=== PATIENT | female | born 1960 | race Caucasian/White ===

== ENCOUNTER 2018-09-10 05:58 | Day surgery (SDC) | payer MEDICARE, MEDICAID ==
[~2018-09-10] VITALS: Ht 157.5 cm; Wt 57.2 kg
[~2018-09-10 05:58] MED LIST: CATAPRES0.1 MG PO; HCTZ25 MG PO; HYDROCODON-ACE1 EAC7 PO; KLONOPIN0.5 MG PO; METOPROL TAR TAB 100 PO; PROTONIX40 MG PO; ZOFRAN4 MG PO
[2018-09-10 06:23] LABS: BASOPHILS 0.5 % (0-2); EOSINOPHILS 4.8 % (0-7); HEMATOCRIT 43.3 % (36.0-48.0); IMMATURE GRANULOCYTES 1.1 % (0-5); LYMPHOCYTES 25.8 % (15-50); MCH 34.2 pg (26.0-34.0); MCHC 34.6 g/dL (31.0-37.0); MCV 98.6 fL (80.0-100.0); MEAN PLATELET VOLUME 9.1 fL (7.4-10.4); MONOCYTES 8.5 % (2-11); NEUTROPHILS 59.3 % (40-80); PLATELET COUNT 275 10x3/uL (130-400); RBC 4.39 10x6/uL (4.00-5.40); RDW 13.7 % (11.5-14.5); WBC 6.1 10x3/uL (4.8-10.8)
[2018-09-10 06:33] LABS: ANION GAP 15.6 mmol/L (8-16); CALCIUM 9.3 mg/dL (8.5-10.1); POTASSIUM - SERUM 4.6 mmol/L (3.5-5.1)
[2018-09-10 07:38] VITALS: BP 146/87; Ht 157.5 cm; Wt 57.2 kg
[2018-09-10] MEDS ORDERED: HYDROCODON-ACE1 EA10 PO (08:43)
--- NOTE | 2018-09-10 10:42 | NUR ---
PATIENT CRYING STATING THAT HER PAIN LEVEL IS AT A 6, SHE IS GRIMICING. A ONE TIME ORDER WAS OBTAINED FOR A [employer] 10. MV
--- NOTE | 2018-10-08 09:41 | OP ---
PATIENT NAME: ARSENIO ESQUEDA MEDICAL RECORD: [id number] :60 LOCATION:[facility] ADMISSION DATE: SURGEON: EZ GALINDO MD DATE OF OPERATION: 09/10/2018 PREOPERATIVE DIAGNOSES: 1. Right inguinal hernia. 2. Tobacco dependence syndrome. 3. Hypertension. 4. Chronic obstructive pulmonary disease. POSTOPERATIVE DIAGNOSES: 1. Right inguinal hernia. 2. Tobacco dependence syndrome. 3. Hypertension. 4. Chronic obstructive pulmonary disease. PROCEDURE: Right inguinal hernia repair with medium PHS mesh. SURGEON: Ez Galindo MD REPORT OF PROCEDURE: The patient's right groin was prepped and draped in sterile fashion. An oblique incision was made above the inguinal ligament. Electrocautery was used to dissect through the subcutaneous tissues down to the external oblique fascia. This fascia was opened up to the external ring using electrocautery. There was a lot of scar tissue present from previous Pfannenstiel incision for hysterectomy. We got through the scar tissue and as we entered the inguinal canal, the patient continued to have a lot of scar tissue present, never could find the round ligament. The ilioinguinal nerve was found and high ligated. The inguinal floor was really just obliterated. The inguinal ligament was not visible, mainly it was just a large collection of fatty tissue present. The vessels were localized and I did not feel any evidence of a femoral hernia. The ilioinguinal nerve had been high ligated and there was no sign of any other nerve structures present in the wound. The pubic bone was found and the overlying fascia was cleared off. At this point, the hernia contents were pushed back into the abdominal cavity and a medium PHS mesh was inserted into the preperitoneal space of Retzius. We sutured down this mesh on any fascial tissue that we could find in all directions and eventually had good coverage of the tissues. The wound was then irrigated out thoroughly with normal saline. The external oblique fascia was then closed with running 2-0 Vicryl, Beto's was closed with interrupted 3-0 Vicryl and the skin was closed with running subcutaneous 5-0 Monocryl. A 10 mL of 0.25% Marcaine with epinephrine were infused into the surrounding tissues and the wound was dressed appropriately. COMPLICATIONS: None. CONDITION: Stable. ANESTHESIA: General endotracheal and local. BLOOD LOSS: Minimal. TRANSINT:[id number] Voice Confirmation ID: [id number] DOCUMENT ID: [id number] OPERATIVE REPORT [id number] ARSENIO ESQUEDA CHRISTIAN MD at 0941 CC: CANDACE BENNETT MD [id number] DICTATION DATE: 09/10/18 0925 HAT CLEANER: 09/10/18 1036 [facility] 09/10/18 [place] [id number] [place] [id number]
== END 2018-09-10 13:20 | disposition home or self-care (01) ==
LOC: D.OPS 05:58 → D.PAN 08:00 → D.OPS 13:20
PROVIDERS: Surgery
DX: K40.90 Unilateral inguinal hernia, without obstruction or gangrene, not specified as recurrent (principal); F17.200 Nicotine dependence, unspecified, uncomplicated; I10 Essential (primary) hypertension; J44.9 Chronic obstructive pulmonary disease, unspecified; Z01.812 Encounter for preprocedural laboratory examination

== ENCOUNTER → 2019-05-03 10:53 | Outpatient (CLI) | payer MEDICARE, MEDICAID ==
[2018-09-10 07:38] VITALS: BMI 23.1
[~2019-05-03 10:53] MED LIST changes: +HYDROCODON-ACE1 EA10 PO
== END | disposition home or self-care (01) ==
LOC: D.US 10:53
PROVIDERS: ATTEND Surgery
DX: R10.31 Right lower quadrant pain (principal)